=== PATIENT | male | born 1995 | race Asian ===

== ENCOUNTER 2019-12-18 14:53 | Emergency (ER) | payer OTHER ==
[~2019-12-18] VITALS: Ht 172.7 cm; Wt 54.4 kg
[2019-12-18 14:57] VITALS: Ht 172.7 cm; Wt 54.4 kg
[2019-12-18 17:30] VITALS: BP 113/70
== END 2019-12-18 17:30 | disposition home or self-care (01) ==
LOC: ED 14:53
DX: S63.601A Unspecified sprain of right thumb, initial encounter (principal); S20.219A Contusion of unspecified front wall of thorax, initial encounter; S00.93XA Contusion of unspecified part of head, initial encounter; F17.210 Nicotine dependence, cigarettes, uncomplicated; V29.9XXA Motorcycle rider (driver) (passenger) injured in unspecified traffic accident, initial encounter; Y93.55 Activity, bike riding; Y92.413 State road as the place of occurrence of the external cause; Y99.8 Other external cause status
CPT/HCPCS: 90715; 99406; J3010; Q0092